=== PATIENT | male | born 1960 | race Caucasian/White ===

== ENCOUNTER 2020-01-29 23:44 | Observation (INO) ==
[2020-01-30 00:16] LABS: Basophils # 0.1 K/mcL (0.0-0.2); Eosinophils # 1.8 K/mcL (0.0-0.6); Eosinophils % 16.9 %; Hematocrit 49.5 % (37.5-50.1); Hemoglobin 16.8 g/dL (12.9-16.9); Immature Granulocytes % 0.5 % (0-4); Lymphocytes # 3.7 K/mcL (0.6-4.6); Lymphocytes % 34.1 %; Mean Corpuscular HGB Conc 33.9 g/dL (31.6-35.5); Mean Corpuscular Hemoglobin 30.8 pg (28.0-33.3); Mean Corpuscular Volume 90.8 fL (83.0-100.0); Mean Platelet Volume 9.2 fL (9.4-12.4); Monocytes % 8.9 %; Neutrophils # 4.1 K/mcL (1.6-8.9); Platelet Count 269 K/mcL (140-400); Red Blood Count 5.45 M/mcL (4.19-5.50); Red Cell Distribution Width 13.1 % (11.5-14.5); Segmented Neutrophils % 38.6 %; White Blood Count 10.7 K/mcL (4.3-11.1)
[2020-01-30 00:35] LABS: BUN/Creatinine Ratio 26 (6-26); Blood Urea Nitrogen 21 mg/dL (6-20); Calcium 9.1 mg/dL (8.6-10.3); Carbon Dioxide 28 mEq/L (23-29); Chloride 103 mEq/L (98-107); Glucose 95 mg/dL (70-105); Osmolality,Calculated 291 (280-300); Potassium 3.6 mEq/L (3.5-5.1); Sodium 139 mEq/L (136-145); eGFR For African Americans > 60 (> 60); eGFR For Non-African Americans > 60 (> 60)
[2020-01-30 00:36] LABS: Troponin I < 0.03 ng/mL (< 0.04)
[2020-01-30] MEDS ORDERED: Ibuprofen 400 MG TABLET PO PRN (01:44)
[2020-01-30] MEDS ORDERED: Naloxone 0.4 MG/ML INJ IVP PRN (01:44)
[2020-01-30] MEDS: *HR* Heparin 5,000 UNIT/ML VIAL SQ SCH ×3 (05:24→19:54)
[2020-01-30 05:41] LABS: Basophils % 1.2 %; Hemoglobin 15.5 g/dL (12.9-16.9)
[2020-01-30 05:43] LABS: Basophils # 0.1 K/mcL (0.0-0.2); Eosinophils # 1.6 K/mcL (0.0-0.6); Eosinophils % 18.6 %; Hematocrit 45.5 % (37.5-50.1); Immature Granulocytes % 0.4 % (0-4); Immature Platelets 4.1 % (1.1-6.1); Lymphocytes % 29.1 %; Mean Corpuscular HGB Conc 34.1 g/dL (31.6-35.5); Mean Platelet Volume 9.8 fL (9.4-12.4); Monocytes # 0.6 K/mcL (0.0-1.3); Monocytes % 7.5 %; Platelet Count 157 K/mcL (140-400); Red Cell Distribution Width 13.1 % (11.5-14.5); Segmented Neutrophils % 43.2 %; White Blood Count 8.4 K/mcL (4.3-11.1)
[2020-01-30 05:44] LABS: Lymphocytes # 2.4 K/mcL (0.6-4.6); Neutrophils # 3.6 K/mcL (1.6-8.9)
[2020-01-30 05:46] LABS: INR 1.1; Prothrombin Time 12.5 Seconds (9.4-12.1)
[2020-01-30 06:06] LABS: BUN/Creatinine Ratio 29 (6-26); Blood Urea Nitrogen 20 mg/dL (6-20); Calcium 8.4 mg/dL (8.6-10.3); Carbon Dioxide 23 mEq/L (23-29); Chloride 105 mEq/L (98-107); Cholesterol 107 mg/dL (< 200); Glucose 109 mg/dL (70-105); HDL Cholesterol 27 mg/dL (40-59); LDL Cholesterol,Calculated 24 mg/dL (< 100); Magnesium 1.9 mg/dL (1.6-2.6); Osmolality,Calculated 285 (280-300); Potassium 3.5 mEq/L (3.5-5.1); Sodium 136 mEq/L (136-145); Triglycerides 281 mg/dL (< 150); eGFR For African Americans > 60 (> 60); eGFR For Non-African Americans > 60 (> 60)
[2020-01-30] MEDS ORDERED: Regadenoson 0.4 MG/5 ML SYRINGE IVP ONE (06:28)
[2020-01-30] MEDS ORDERED: NON-FORMULARY MEDICATION 1 EACH EACH (Ezetimibe [Zetia] 10 MG) PO SCH (09:00)
[2020-01-30] MEDS: Fenofibrate 54 MG TABLET PO SCH (10:29)
[2020-01-30] MEDS: Losartan/HCTZ 50-12.5 TABLET PO SCH (10:29)
[2020-01-30] MEDS: amLODIPine 5 MG TABLET PO SCH (10:29)
[2020-01-30] MEDS: Metoprolol XL (24 HR) Succ 50 MG TAB.ER.24H PO SCH (11:52)
[2020-01-30] MEDS: Acetaminophen 325 MG TABLET PO PRN (19:19)
[2020-01-30] MEDS: Niacin (24 HR) 500 MG TAB.ER.24H PO SCH (19:52)
[2020-01-31] MEDS: *HR* Heparin 5,000 UNIT/ML VIAL SQ SCH ×3 (05:04→21:46)
[2020-01-31] MEDS: Losartan/HCTZ 50-12.5 TABLET PO SCH (08:50)
[2020-01-31] MEDS: Fenofibrate 54 MG TABLET PO SCH (08:50)
[2020-01-31] MEDS: Metoprolol XL (24 HR) Succ 50 MG TAB.ER.24H PO SCH (08:50)
[2020-01-31] MEDS: amLODIPine 5 MG TABLET PO SCH (08:52)
[2020-01-31] MEDS ORDERED: Perflutren Lipid Microsphere 1.3 ML in 0.9 % Sodium Chloride 8.7 ML IVP PRN (12:35)
[2020-01-31] MEDS ORDERED: Losartan/HCTZ 50-12.5 TABLET PO ONE (12:45)
[2020-01-31] MEDS: Acetaminophen 325 MG TABLET PO PRN (20:09)
[2020-01-31] MEDS: Niacin (24 HR) 500 MG TAB.ER.24H PO SCH (20:34)
[2020-02-01] MEDS: *HR* Heparin 5,000 UNIT/ML VIAL SQ SCH ×3 (05:47→20:22)
[2020-02-01 06:20] LABS: BUN/Creatinine Ratio 19 (6-26); Blood Urea Nitrogen 14 mg/dL (6-20); Calcium 9.4 mg/dL (8.6-10.3); Carbon Dioxide 26 mEq/L (23-29); Chloride 104 mEq/L (98-107); Glucose 106 mg/dL (70-105); Osmolality,Calculated 287 (280-300); Potassium 3.6 mEq/L (3.5-5.1); Sodium 138 mEq/L (136-145); eGFR For African Americans > 60 (> 60); eGFR For Non-African Americans > 60 (> 60)
[2020-02-01] MEDS: Metoprolol XL (24 HR) Succ 50 MG TAB.ER.24H PO SCH (08:36)
[2020-02-01] MEDS: Losartan/HCTZ 50-12.5 TABLET PO SCH (08:36)
[2020-02-01] MEDS: Fenofibrate 54 MG TABLET PO SCH (08:37)
[2020-02-01] MEDS: amLODIPine 5 MG TABLET PO SCH (08:37)
[2020-02-01] MEDS: Aspirin Enteric Coated 81 MG Tablet PO SCH (09:50)
[2020-02-01] MEDS ORDERED: Heparin 1,000 UNITS/500 mL 500 ML ONE (14:49)
[2020-02-01] MEDS ORDERED: ISOVUE-370 200 ML INFUS..BTL ONE ×2 (14:49→16:03)
[2020-02-01] MEDS ORDERED: 0.9 % Sodium Chloride 1,000 ML ONE ×2 (14:49→16:50)
[2020-02-01] MEDS ORDERED: *HR* Heparin 10,000 UNIT/10 ML VIAL ONE (14:49)
[2020-02-01] MEDS ORDERED: Nitroglycerin 1,000 MCG/10 ML VIAL IV ONE (14:50)
[2020-02-01] MEDS ORDERED: *HR* FentaNYL (PF) 100 MCG/2 ML VIAL ONE (14:55)
[2020-02-01] MEDS ORDERED: *HR* Midazolam HCl 2 MG/2 ML VIAL ONE (14:55)
[2020-02-01] MEDS: Acetaminophen 325 MG TABLET PO PRN (21:37)
[2020-02-01] MEDS: Niacin (24 HR) 500 MG TAB.ER.24H PO SCH (22:20)
[2020-02-02] MEDS: *HR* Heparin 5,000 UNIT/ML VIAL SQ SCH (03:46)
[2020-02-02] MEDS: Acetaminophen 325 MG TABLET PO PRN ×2 (03:55→11:34)
[2020-02-02 04:07] LABS: BUN/Creatinine Ratio 19 (6-26); Blood Urea Nitrogen 16 mg/dL (6-20); Calcium 9.3 mg/dL (8.6-10.3); Carbon Dioxide 29 mEq/L (23-29); Chloride 99 mEq/L (98-107); Glucose 97 mg/dL (70-105); Osmolality,Calculated 283 (280-300); Potassium 3.8 mEq/L (3.5-5.1); Sodium 136 mEq/L (136-145); eGFR For African Americans > 60 (> 60); eGFR For Non-African Americans > 60 (> 60)
[2020-02-02 05:02] LABS: Hematocrit 48.8 % (37.5-50.1); Hemoglobin 16.6 g/dL (12.9-16.9); Mean Corpuscular Hemoglobin 30.7 pg (28.0-33.3); Mean Corpuscular Volume 90.4 fL (83.0-100.0); Mean Platelet Volume 9.1 fL (9.4-12.4); Platelet Count 263 K/mcL (140-400); Red Cell Distribution Width 13.3 % (11.5-14.5); White Blood Count 8.7 K/mcL (4.3-11.1)
[2020-02-02] MEDS ORDERED: Isosorbide MONOnitrate (24 HR) 30 MG TAB.ER.24H PO SCH (09:00)
[2020-02-02] MEDS: Metoprolol XL (24 HR) Succ 50 MG TAB.ER.24H PO SCH (09:05)
[2020-02-02] MEDS: amLODIPine 5 MG TABLET PO SCH (09:05)
[2020-02-02] MEDS: Fenofibrate 54 MG TABLET PO SCH (09:05)
[2020-02-02] MEDS: Losartan/HCTZ 50-12.5 TABLET PO SCH (09:05)
[2020-02-02] MEDS: Aspirin Enteric Coated 81 MG Tablet PO SCH (09:06)
[2020-02-02 11:09] VITALS: BP 129/75
== END 2020-02-02 13:28 | disposition home or self-care (01) ==
LOC: EMEROOARM 23:44 → 3BNU 23:44 → SUATTDRO 01-30 01:26 → 3BNU 01-30 02:00
PROVIDERS: ADMIT Family Medicine; ATTEND Internal Medicine

== ENCOUNTER 2021-03-24 18:22 | Inpatient (IN) ==
[2021-03-24] MEDS ORDERED: *HR* Heparin 5,000 UNIT/ML VIAL ONE (18:57)
[2021-03-24] MEDS ORDERED: *HR* Heparin 5,000 UNIT/ML VIAL IVP ONE (18:57)
[2021-03-24 19:08] LABS: Basophils # 0.1 K/mcL (0.0-0.2); Basophils % 0.9 %; Eosinophils # 1.1 K/mcL (0.0-0.6); Eosinophils % 9.8 %; Hemoglobin 19.7 g/dL (12.9-16.9); Immature Granulocytes % 0.5 % (0-4); Lymphocytes # 4.2 K/mcL (0.6-4.6); Lymphocytes % 36.3 %; Mean Corpuscular HGB Conc 35.2 g/dL (31.6-35.5); Mean Corpuscular Hemoglobin 32.2 pg (28.0-33.3); Mean Corpuscular Volume 91.5 fL (83.0-100.0); Mean Platelet Volume 9.1 fL (9.4-12.4); Monocytes % 8.3 %; Neutrophils # 5.1 K/mcL (1.6-8.9); Platelet Count 303 K/mcL (140-400); Red Blood Count 6.12 M/mcL (4.19-5.50); Red Cell Distribution Width 12.5 % (11.5-14.5); Segmented Neutrophils % 44.2 %; White Blood Count 11.6 K/mcL (4.3-11.1)
[2021-03-24] MEDS ORDERED: *HR* Midazolam HCl 5 MG/5 ML VIAL IVP ONE (19:16)
[2021-03-24] MEDS ORDERED: *HR* FentaNYL (PF) 100 MCG/2 ML VIAL ONE (19:16)
[2021-03-24] MEDS ORDERED: *HR* Heparin 10,000 UNIT/10 ML VIAL ONE (19:17)
[2021-03-24 19:25] LABS: BUN/Creatinine Ratio 21 (6-26); Blood Urea Nitrogen 21 mg/dL (6-20); Calcium 9.8 mg/dL (8.6-10.3); Carbon Dioxide 26 mEq/L (23-29); Chloride 99 mEq/L (98-107); Glucose 102 mg/dL (70-105); Osmolality,Calculated 283 (280-300); Potassium 3.6 mEq/L (3.5-5.1); Sodium 135 mEq/L (136-145); eGFR For African Americans > 60 (> 60); eGFR For Non-African Americans > 60 (> 60)
[2021-03-24 19:27] LABS: Troponin I < 0.03 ng/mL (< 0.04)
[2021-03-24] MEDS ORDERED: Tirofiban 12.5 MG/250ML 12.5 MG/250 ML BAG ONE (19:44)
[2021-03-24] MEDS ORDERED: *HR* Atropine Sulfate 1 MG/10 ML SYRINGE ONE (19:52)
[2021-03-24] MEDS ORDERED: Perflutren Lipid Microsphere 1.3 ML in 0.9 % Sodium Chloride 8.7 ML IVP PRN (20:53)
[2021-03-24] MEDS ORDERED: Naloxone 0.4 MG/ML INJ IVP PRN (20:53)
[2021-03-24 21:37] LABS: Basophils # 0.1 K/mcL (0.0-0.2); Basophils % 0.7 %; Eosinophils # 0.7 K/mcL (0.0-0.6); Hematocrit 47.9 % (37.5-50.1); Immature Granulocytes % 0.5 % (0-4); Lymphocytes # 1.8 K/mcL (0.6-4.6); Lymphocytes % 16.7 %; Mean Corpuscular HGB Conc 35.3 g/dL (31.6-35.5); Mean Corpuscular Hemoglobin 32.3 pg (28.0-33.3); Mean Corpuscular Volume 91.6 fL (83.0-100.0); Mean Platelet Volume 9.5 fL (9.4-12.4); Monocytes # 0.6 K/mcL (0.0-1.3); Monocytes % 5.9 %; Neutrophils # 7.6 K/mcL (1.6-8.9); Platelet Count 251 K/mcL (140-400); Red Blood Count 5.23 M/mcL (4.19-5.50); Red Cell Distribution Width 12.3 % (11.5-14.5); Segmented Neutrophils % 70.2 %; White Blood Count 10.8 K/mcL (4.3-11.1)
[2021-03-24 21:42] LABS: Hemoglobin 16.9 g/dL (12.9-16.9)
[2021-03-24 22:07] LABS: Estimated Average Glucose 108 mg/dl; Hemoglobin A1C 5.4 %
[2021-03-24] MEDS: Niacin (24 HR) 500 MG TAB.ER.24H PO SCH (22:44)
[2021-03-24] MEDS: gemfibroziL 600 MG TABLET PO SCH (23:14)
[2021-03-24] MEDS: Ranolazine 500 MG TAB.ER.12H PO SCH (23:14)
[2021-03-25] MEDS: Isosorbide MONOnitrate (24 HR) 30 MG TAB.ER.24H PO SCH (07:45)
[2021-03-25] MEDS: Losartan/HCTZ 50-12.5 TABLET PO SCH (07:45)
[2021-03-25] MEDS: Aspirin Enteric Coated 81 MG Tablet PO SCH (07:45)
[2021-03-25] MEDS: Multivit/Ca/Min/Fe/FA 1 TAB TABLET PO SCH (07:46)
[2021-03-25] MEDS: Ranolazine 500 MG TAB.ER.12H PO SCH ×2 (07:46→20:23)
[2021-03-25] MEDS: gemfibroziL 600 MG TABLET PO SCH ×2 (07:46→20:23)
[2021-03-25] MEDS: Metoprolol XL (24 HR) Succ 50 MG TAB.ER.24H PO SCH (07:46)
[2021-03-25 08:53] LABS: BUN/Creatinine Ratio 22 (6-26); Blood Urea Nitrogen 18 mg/dL (6-20); Calcium 9.2 mg/dL (8.6-10.3); Carbon Dioxide 22 mEq/L (23-29); Chloride 104 mEq/L (98-107); Cholesterol 132 mg/dL (< 200); Glucose 90 mg/dL (70-105); HDL Cholesterol 33 mg/dL (40-59); LDL Cholesterol,Calculated 76 mg/dL (< 100); Osmolality,Calculated 281 (280-300); Potassium 4.9 mEq/L (3.5-5.1); Sodium 135 mEq/L (136-145); Triglycerides 117 mg/dL (< 150); eGFR For African Americans > 60 (> 60); eGFR For Non-African Americans > 60 (> 60)
[2021-03-25] MEDS ORDERED: NON-FORMULARY MEDICATION 1 EACH EACH (Ezetimibe [Zetia] 10 MG Tablet) PO SCH (09:00)
[2021-03-25] MEDS ORDERED: NON-FORMULARY MEDICATION 1 EACH EACH (Ubidecarenone [Co Q-10] 100 MG Capsule) PO SCH (09:00)
[2021-03-25] MEDS ORDERED: VITAMIN A 10000 UNIT PO SCH (09:00)
[2021-03-25] MEDS: Niacin (24 HR) 500 MG TAB.ER.24H PO SCH (20:24)
[2021-03-26] MEDS: Aspirin Enteric Coated 81 MG Tablet PO SCH (07:56)
[2021-03-26] MEDS: Metoprolol XL (24 HR) Succ 50 MG TAB.ER.24H PO SCH (07:56)
[2021-03-26] MEDS: Losartan/HCTZ 50-12.5 TABLET PO SCH (07:56)
[2021-03-26] MEDS: gemfibroziL 600 MG TABLET PO SCH ×2 (07:57→19:52)
[2021-03-26] MEDS: Multivit/Ca/Min/Fe/FA 1 TAB TABLET PO SCH (07:57)
[2021-03-26] MEDS: Isosorbide MONOnitrate (24 HR) 30 MG TAB.ER.24H PO SCH (07:58)
[2021-03-26] MEDS: Ranolazine 500 MG TAB.ER.12H PO SCH ×2 (07:58→19:52)
[2021-03-26] MEDS: Niacin (24 HR) 500 MG TAB.ER.24H PO SCH (19:52)
[2021-03-27 08:02] VITALS: BP 138/87; PULSE 60; TEMP 97.6; O2SAT 96
[2021-03-27] MEDS: gemfibroziL 600 MG TABLET PO SCH (08:45)
[2021-03-27] MEDS: Metoprolol XL (24 HR) Succ 50 MG TAB.ER.24H PO SCH (08:45)
[2021-03-27] MEDS: Losartan/HCTZ 50-12.5 TABLET PO SCH (08:45)
[2021-03-27] MEDS: Aspirin Enteric Coated 81 MG Tablet PO SCH (08:45)
[2021-03-27] MEDS: Multivit/Ca/Min/Fe/FA 1 TAB TABLET PO SCH (08:45)
[2021-03-27] MEDS: Ranolazine 500 MG TAB.ER.12H PO SCH (08:45)
[2021-03-27] MEDS: Isosorbide MONOnitrate (24 HR) 30 MG TAB.ER.24H PO SCH (08:46)
[2021-03-27 08:47] LABS: Basophils # 0.1 K/mcL (0.0-0.2); Basophils % 1.1 %; Eosinophils # 0.8 K/mcL (0.0-0.6); Eosinophils % 9.7 %; Hematocrit 54.5 % (37.5-50.1); Immature Granulocytes % 0.5 % (0-4); Lymphocytes # 2.5 K/mcL (0.6-4.6); Lymphocytes % 29.6 %; Mean Corpuscular Hemoglobin 32.5 pg (28.0-33.3); Mean Corpuscular Volume 92.8 fL (83.0-100.0); Mean Platelet Volume 9.5 fL (9.4-12.4); Monocytes # 0.7 K/mcL (0.0-1.3); Monocytes % 8.3 %; Neutrophils # 4.3 K/mcL (1.6-8.9); Platelet Count 258 K/mcL (140-400); Red Blood Count 5.87 M/mcL (4.19-5.50); Red Cell Distribution Width 12.6 % (11.5-14.5); Segmented Neutrophils % 50.8 %; White Blood Count 8.5 K/mcL (4.3-11.1)
[2021-03-27 08:55] LABS: Hemoglobin 19.1 g/dL (12.9-16.9)
[2021-03-27 09:09] LABS: BUN/Creatinine Ratio 17 (6-26); Blood Urea Nitrogen 15 mg/dL (6-20); Calcium 9.6 mg/dL (8.6-10.3); Carbon Dioxide 26 mEq/L (23-29); Chloride 103 mEq/L (98-107); Glucose 98 mg/dL (70-105); Osmolality,Calculated 283 (280-300); Potassium 4.2 mEq/L (3.5-5.1); Sodium 136 mEq/L (136-145); eGFR For African Americans > 60 (> 60); eGFR For Non-African Americans > 60 (> 60)
== END 2021-03-27 11:50 | disposition home or self-care (01) | DRG 247 ==
LOC: EMEROOARM 18:22 → 2NNU 18:22
PROVIDERS: ADMIT Internal Medicine; ATTEND Internal Medicine